=== PATIENT | female | born 1995 | race Caucasian/White ===

== ENCOUNTER 2016-08-13 00:05 | Emergency (ER) | payer SELFPAY ==
[~2016-08-13] VITALS: Ht 162.6 cm; Wt 66.0 kg
[~2016-08-13 00:05] MED LIST: FER325 PO; PREN1TAB62 PO
[2016-08-13 00:10] VITALS: Ht 162.6 cm; Wt 66.0 kg
[2016-08-13 00:52] LABS: ADD SCAN DIFF NO
[2016-08-13 01:00] LABS: BASOPHILS % 0.3 % (0.0-2.0); EOSINOPHILS # 0.2 10^3/ul (0.0-0.5); EOSINOPHILS % 1.4 % (0.0-7.0); HEMOGLOBIN 13.3 g/dl (12.0-16.0); LYMPHOCYTES # 2.7 10^3/ul (0.8-2.9); LYMPHOCYTES % 23.1 % (18.0-55.0); MEAN CORPUSCULAR HEMOGLOBIN 29.5 pg (29.0-33.0); MEAN CORPUSCULAR HGB CONC 34.1 g/dl (32.0-37.0); MEAN CORPUSCULAR VOLUME 86.5 fl (72.0-104.0); MEAN PLATELET VOLUME 9.9 fl (7.4-10.4); MONOCYTE # 0.8 10^3/ul (0.3-0.9); MONOCYTES % 6.7 % (0.0-13.0); NEUTROPHIL # 7.9 10^3/ul (1.6-7.5); NEUTROPHILS % 67.9 % (30.0-74.0); PLATELET COUNT 275 10^3/UL (140-415); RED BLOOD COUNT 4.51 10^6/ul (4.20-5.40); RED CELL DISTRIBUTION WIDTH 12.8 % (11.5-14.5); WHITE BLOOD COUNT 11.6 10^3/ul (4.8-10.8)
[2016-08-13 01:11] LABS: ADD UMIC YES; UR AMORPHOUS CRYSTAL MANY /HPF (NONE SEEN); UR ASCORBIC ACID NEGATIVE (NEGATIVE); UR BILIRUBIN (Dip) NEGATIVE (NEGATIVE); UR BLOOD (Dip) NEGATIVE (NEGATIVE); UR CLARITY CLOUDY (CLEAR); UR COLOR YELLOW (YELLOW); UR GLUCOSE (Dip) NEGATIVE (NEGATIVE); UR KETONES (Dip) NEGATIVE (NEGATIVE); UR LEUKOCYTE ESTERASE (Dip) NEGATIVE Leu/ul (NEGATIVE); UR NITRITE (Dip) NEGATIVE (NEGATIVE); UR RBC 0 /HPF (0-5); UR SPECIFIC GRAVITY (Dip) 1.013 (1.003-1.030); UR SQUAMOUS EPITHELIAL CELL FEW /HPF (FEW); UR TOTAL PROTEIN (Dip) NEGATIVE (NEGATIVE); UR UROBILINOGEN (Dip) NEGATIVE (NEGATIVE)
--- NOTE | 2016-08-13 02:01 | RADRPT ---
PROCEDURE: ULTRASOUND OBSTETRICAL CLINICAL INDICATION: 20-year-old female with pelvic pain/pressure. TECHNIQUE: Multiple sonographic images of the pelvis were obtained. The images were reviewed on a PACS workstation. COMPARISON: No prior studies are available for comparison. FINDINGS: The cervix is not well visualized. There is a single viable intrauterine gestation. Cardiac activit y is present with 144 beats per minute. There is a vertex presentation. Measurements were made in or valdemar to determine age. The results are as follows: BPD = 4.62 cm, HC = 17.08 cm, AC = 13.27 cm, FL = 3.15 cm. This yields and estimated gestational ag e of approximately 19 weeks 4 days. The estimated date of delivery is January 03, 2017. The EFW = 285 +/- 43 g. The GP is 47%. The placenta is posterior. There is no evidence for an abruption or placenta previa. There is an adequate amount of amniotic fluid with a maximal vertical pocket of 4.2 cm. IMPRESSION: Single viable intrauterine gestation of approximately 19 weeks 4 days. The estimated date of delive ry is January 03, 2017. .Rajesh Botello MD, Date Time Electronically viewed and signed by .Rajesh Botello MD, on 08/13/2016 02:01 .Janae/
--- NOTE | 2016-08-13 03:14 | ERD ---
ER Documentation Chief Complaint Date/Time DATE: 08/13/16 TIME: 03:12 Chief Complaint 19 weeks and 2 days , pelvic pain HPI This is a 20-year-old female presenting to the emergency department who is with last menstrual period being March 30 stating she is 19 weeks complaining of pelvic pain for the past 2 days. Patient states that the pain comes and goes and describes as crampy rating it moderate in severity. Patient denies any vaginal bleeding, fevers, dysuria. She denies any nausea, vomiting, diarrhea. Patient states that she has an OB at [facility] ROS All systems reviewed and are negative except as per history of present illness. Medications Home Meds Reported Medications Ferrous Sulfate* (Ferrous Sulfate*) 325 Mg Tabec, 325 MG PO DAILY, TAB 01/13/15 Vit-Iron Fumarate-FA ( Vitamin Tablet) 1 Each Tablet, 1 TAB PO DAILY, TAB 10/02/14 Allergies Allergies: Coded Allergies: No Known Drug Allergies (Verified Allergy, Unknown, 10/02/14) Uncoded Allergies: NKA (Allergy, 11/28/12) PMhx/Soc Medical and Surgical Hx: pt denies Medical Hx, pt denies Surgical Hx History of Surgery: No Anesthesia Reaction: No Hx Neurological Disorder: No Hx Respiratory Disorders: No Hx Cardiac Disorders: No Hx Psychiatric Problems: No Hx Miscellaneous Medical Probl: No Hx Alcohol Use: No Hx Substance Use: No Hx Tobacco Use: No Smoking Status: Never smoker Physical Exam Vitals Vital Signs Date Time Temp Pulse Resp B/P Pulse Ox O2 Delivery O2 Flow Rate FiO2 08/13/16 00:10 98.2 84 20 122/75 97 Physical Exam General: well-developed/well-nourished, in no apparent distress, non-toxic appearing HENT: NC/AT Eyes: Conjunctiva normal Neck: Supple Pulm: CTA bilaterally, normal breathing CV: Normal S1S2 GI: Soft, non-distended, normal bowel sounds, TTP on suprapubic region Back: No midline tenderness, no masses, No CVAT Ext: No clubbing, cyanosis, or edema Neuro: Alert and orientated Skin: intact, normal turgor Psych: Normal mood and mentation Result Diagram: 08/13/16 0035 Results 24 hrs Laboratory Tests Test 08/13/16 00:35 White Blood Count 11.610^3/ul Red Blood Count 4.5110^6/ul Hemoglobin 13.3g/dl Hematocrit 39.0% Mean Corpuscular Volume 86.5fl Mean Corpuscular Hemoglobin 29.5pg Mean Corpuscular Hemoglobin Concent 34.1g/dl Red Cell Distribution Width 12.8% Platelet Count 94956^3/UL Mean Platelet Volume 9.9fl Neutrophils % 67.9% Lymphocytes % 23.1% Monocytes % 6.7% Eosinophils % 1.4% Basophils % 0.3% Nucleated Red Blood Cells % 0.0/100WBC Neutrophils # 7.910^3/ul Lymphocytes # 2.710^3/ul Monocytes # 0.810^3/ul Eosinophils # 0.210^3/ul Basophils # 0.010^3/ul Nucleated Red Blood Cells # 0.010^3/ul Urine Color YELLOW Urine Clarity CLOUDY Urine pH 7.0 Urine Specific [place] 1.013 Urine Ketones NEGATIVEmg/dL Urine Nitrite NEGATIVEmg/dL Urine Bilirubin NEGATIVEmg/dL Urine Urobilinogen NEGATIVEmg/dL Urine Leukocyte Esterase NEGATIVELeu/ul Urine Microscopic RBC 0/HPF Urine Microscopic WBC 0/HPF Urine Squamous Epithelial Cells FEW/HPF Urine Amorphous Crystals MANY/HPF Urine Hemoglobin NEGATIVEmg/dL Urine Glucose NEGATIVEmg/dL Urine Total Protein NEGATIVEmg/dl Beta HCG, Quantitative 08378.0mIU/ml Procedures/MDM This is a 20-year-old female presenting to the emergency department who is with last menstrual period being March 30 stating she is 19 weeks complaining of pelvic pain for the past 2 days. Patient is well-appearing, she has stable vital signs. She did not seem to be in significant pain. Lab work was drawn. CBC did not show any evidence of leukocytosis or anemia. CMP did not show any evidence of renal, liver, or electrolyte abnormalities. Lipase was normal. UA did not show any evidence of hemoglobin or urinary tract infection. Ultrasound showed a single viable intrauterine gestation of 19 weeks. There was no evidence of urinary tract infection, , ovarian torsion or ruptured ovarian cyst. At this time patient appears well to be discharged home to follow-up with an [facility]. I discussed the patient to return to the ER for any worsening sinuses. She understands and agrees with this plan OB ultrasound: Single viable intrauterine gestation of approximately 19 weeks 4 days. The estimated date of delivery is January 03, 2017. Departure Diagnosis: Primary Impression: Pelvic pain during Condition: Stable Patient Instructions: Pelvic Pain In : Unclear (2-3 Trimester) Additional Instructions: FOLLOW UP WITH YOUR PRIMARY CARE PHYSICIAN TOMORROW.Return to this facility if you are not improving as expected. Return to this facility if you are not improving as expected. SUZAN RAMÍREZ PA-C Aug 13, 2016 03:14
== END 2016-08-13 02:30 | disposition home or self-care (01) ==
LOC: FTE 00:05
DX: O26.892 Other specified pregnancy related conditions, second trimester (principal); R10.2 Pelvic and perineal pain; Z3A.19 19 weeks gestation of pregnancy
CPT/HCPCS: 36415; 76805; 81001; 84702; 85025; 86900; 86901

== ENCOUNTER 2016-12-22 06:30 | Inpatient (IN) | payer OTHER ==
[~2016-12-22] VITALS: Ht 167.6 cm; Wt 76.5 kg
[2016-12-22 06:47] VITALS: Ht 167.6 cm; Wt 76.5 kg
[2016-12-22 06:48] VITALS: BP 138/83; PULSE 93; RESP 18
[2016-12-22] MEDS ORDERED: BEN25 PO (06:51)
--- NOTE | 2016-12-22 07:20 | TRIAGE ---
OB Triage Datetime Report Generated by CPN: 12/22/2016 07:19 Datetime: 12/22/2016 07:05 Stage of : OB Triage Labor Evaluation Frequency: 2-5 Monitor Mode: External Duration (sec)2399: 60-120 Quality: Moderate Pattern: Normal: <= 5 Contractions in 10 Minutes Resting Tone [place]: Relaxed Heart Rate FHR Baseline Rate: 130 Monitor Mode: External US Variability: Moderate 6-25 bpm Accelerations: 10X10 Decelerations: None Category: Category I Pain Assessment Pain Scale: 7 Pain Presence: Intermittent Pain Type: Cramping; Contraction Pain Location: Abdomen; Back Pain Goal: 3 Pain Relief Measures: Comfort Measures Datetime: 12/22/2016 07:00 Vaginal Exam Dilatation (cms): 5.0 Effacement (%): 90 Station: -1 Exam By: [place] Vaginal Bleeding: None Cervix, Consistency: Soft Cervix, Position: Midposition Datetime: 12/22/2016 06:53 Assessment Type: Triage Maternal Assessment Level of Consciousness: Fully Conscious DTR's/Clonus: DTRs 2+; No Clonus Headache: Denies Blurred Vision: No Respiratory Effort: Unlabored; Regular Rhythm; Equal Expansion Breath Sounds, Left: Clear and Equal Breath Sounds, Right: Clear and Equal Nausea/Vomiting: Denies RUQ Epigastric Pain: Denies Lower Extremities Edema: None Upper Extremities Edema: None Facial Edema: None Fall Risk Assessment History of Falling: (0) No Secondary Diagnosis: (0) No Ambulatory Aid: (0) Bedrest/Nurse Assist IV Therapy: (0) No Gait: (0) Normal/Bedrest/Immobile Mental Status: (0) Oriented to Own Ability Fall Score: 0 Fall Risk Score Definition: No Risk: No action required Datetime: 12/22/2016 06:52 Time of Arrival: 12/22/2016 06:23 EGA: 38.0 Arrived By: Wheelchair Arrived From: Home Chief Complaint: CONTRACTIONS SINCE 2099 Movement: Present Contractions: Regular Time Contractions Began: 12/21/2016 21:00 Contractions: Q 5 MIN Rupture of Membranes: Denies Vaginal Discharge: Denies Time Provider Notified: 12/22/2016 07:02 Provider Notified: ISABEL Initial Plan: EFM, ASSESSMENT, CALL MD FOR ORDERS
[2016-12-22] MEDS ORDERED: IBUPROFEN 600 MG TAB PO PRN (07:30)
[2016-12-22] MEDS ORDERED: OXYTOCIN 30 UNITS/LR 500 ML IV PRN (07:30)
[2016-12-22] MEDS ORDERED: BUTORPHANOL 2 MG INJ IV PRN (07:30)
[2016-12-22] MEDS ORDERED: OXYTOCIN 30 UNITS/LR 500 ML IV SCH ×2 (07:30)
[2016-12-22] MEDS ORDERED: METHYLERGONOVINE 0.2 MG INJ IM PRN (07:30)
[2016-12-22] MEDS ORDERED: CARBOPROST 250 MCG INJ IM PRN (07:30)
[2016-12-22] MEDS ORDERED: MISOPROSTOL 200 MCG TAB PR PRN (07:30)
[2016-12-22] MEDS ORDERED: LACTATED RINGER'S 1,000 ML IV PRN (07:30)
[2016-12-22] MEDS ORDERED: LIDOCAINE 1% (MPF) 30 ML INJ INJ PRN (07:30)
[2016-12-22] MEDS: LACTATED RINGER'S 1,000 ML IV SCH ×2 (08:06→08:26)
[2016-12-22] MEDS ORDERED: FENTAnyl 2MCG/ML-ROPIV 0.2% 100 ML ONE (08:32)
--- NOTE | 2016-12-22 09:28 | LDN ---
Date/Time of Note Date/Time of Note DATE: 12/22/16 TIME: 09:24 Delivery Summary Normal spontaneous vaginal delivery of a baby girl from OA position shoulders delivered without any difficulty rest of the baby's body followed cord clamped after stopped pulsation, placenta spontaneous expulsion inspected complete, patient sustained 2 very small para urethral laceration repaired with 4-0 chromic catgut ,estimated blood loss 200 cc Weeks of Gestation 38 week Placenta Delivered: Spontaneously Meconium: none Episiotomy: No Laceration repair: 2 1 cm paraurethral laceration repaired with 4-0 chromic catgut Anesthesia type: Epidural Estimated blood loss: 200 Sponge & Needle done & correct: Yes All needle counts correct: Yes Any foreign bodies felt in the: No Problems: Delivery Information Sex Sex: female Apgars 1 Minute: 9 5 Minute: 9 Suctioning Nose & mouth suctioned at nona: Yes Delee suction performed: No Umbilical Cord Umbilical cord with: 3 Vessels Cord presentations: no nuchal cord Cord Blood was obtained: Yes SHIRLEY HALL MD Dec 22, 2016 09:28
--- NOTE | 2016-12-22 09:33 | HP ---
Date/Time of Note Date/Time of Note DATE: 12/22/16 TIME: 09:28 OB - History Hx of Present Free Text/Dictation 21 years old female 3 para 2 EDC January 05, 2017 admitted to [facility] at 38 weeks gestation in active labor ,examination on admission cervix 5 cm dilated 90% effaced vertex at -1 station, patient transferred from the triage unit to L&D anticipating vaginal delivery Chief Complaint: Labor contraction Estimated Due Date: Jan 05, 2017 : 3 Para: 2 Care: Good Care Ultrasounds: Normal mid trimester US Obstetrical Complications: None Past Family/Social History * Past Medical, Surgical, Family and Obstetric Histories reviewed from chart. Rubella: immune RPR/VDRL: Negative GBS Status: Negative HBsAG: Negative OB Admission Exam Vital Signs Vital Signs Vital Signs Date Time Temp Pulse Resp B/P Pulse Ox O2 Delivery O2 Flow Rate FiO2 12/22/16 06:48 98.7 93 18 138/83 Room Air Physical Exam HEENT: WNL Heart: Rhythm Normal Lungs: Clear, Equal Abdomen: WNL Extremities: Normal Reflexes: Normal Cervical Dilatation: 5cm Effacement: Other (90%) Station: -1 Membranes: Intact Heart Rate: 130's Accelerations: Accelerations Present Decelerations: No Decelerations Varibility: Moderate Contractions on Admission: < 5 Minutes Apart Intensity: Firm Last 72 hours Lab Results CBC & BMP 12/22/16 07:44 OB Assessment/Plan Reason for admission: other (38 weeks admitted to the hospital in active labor) Other plan: 21 years old female , EDC January 05, 2017 admitted to the hospital in active labor ,pelvic examination on admission cervix 5 cm dilated 90% effaced vertex at -1 station category 1 heart tracing, contraction every 2-4 minutes patient transferred from triage to labor and delivery room anticipating vaginal delivery SHIRLEY HALL MD Dec 22, 2016 09:33
[2016-12-22] MEDS ORDERED: WITCH HAZEL/GLYCERIN PAD PR PRN (11:30)
[2016-12-22] MEDS ORDERED: BENZOCAINE 20% 56 ML SPRAY TOP PRN (11:30)
[2016-12-22] MEDS ORDERED: ONDANSETRON 4 MG INJ IV PRN ×2 (11:30→14:30)
[2016-12-22] MEDS ORDERED: OXYCODONE/ASPIRIN (4.88/325) TAB PO PRN ×2 (11:30)
[2016-12-22] MEDS ORDERED: HYDROCODONE/APAP (5/325) TAB PO PRN ×2 (11:30)
[2016-12-22] MEDS ORDERED: LANOLIN 7 GM TUBE TOP PRN (11:30)
[2016-12-22] MEDS ORDERED: ACETAMINOPHEN 325 MG TAB PO PRN (11:30)
[2016-12-22] MEDS ORDERED: DIBUCAINE 1% 30 GM OINT PR PRN (11:30)
[2016-12-22 11:39] VITALS: BP 128/82; PULSE 97; RESP 14
[2016-12-22 12:30] VITALS: BP 125/75; PULSE 77; RESP 14
[2016-12-22] MEDS: OXYTOCIN 30 UNITS/LR 500 ML IV SCH ×2 (13:34→17:22)
[2016-12-22] MEDS: IBUPROFEN 600 MG TAB PO SCH ×3 (13:35→23:52)
[2016-12-22] MEDS ORDERED: NALOXONE (0.4 MG/ML) INJ IV PRN (14:30)
[2016-12-22] MEDS ORDERED: FENTAnyl 2MCG/ML-ROPIV 0.2% 100 ML BAG EPI SCH (14:30)
[2016-12-22] MEDS ORDERED: DIPHENHYDRAMINE 50 MG INJ IV PRN (14:30)
[2016-12-22 16:34] VITALS: BP 120/70; PULSE 66; RESP 14
[2016-12-22 20:40] VITALS: BP 131/77; PULSE 92; RESP 18
[2016-12-22] MEDS: SENNA/DOCUSATE NA (8.6MG/50MG) TAB PO SCH (21:52)
[2016-12-23 04:00] VITALS: BP 119/72; PULSE 75; RESP 17
[2016-12-23] MEDS: IBUPROFEN 600 MG TAB PO SCH ×3 (05:55→17:30)
[2016-12-23 08:00] VITALS: BP 106/60; PULSE 72; RESP 18
[2016-12-23] MEDS: SENNA/DOCUSATE NA (8.6MG/50MG) TAB PO SCH ×2 (09:59→20:28)
[2016-12-23 16:00] VITALS: BP 108/67; PULSE 77; RESP 18
--- NOTE | 2016-12-23 16:13 | QN ---
Documentation Comment Post normal vaginal delivery day 1 Afebrile Vital signs are stable Abdomen soft, uterus firm, lochia normal, extremity normal Plan of a.m. discharge discussed SHIRLEY HALL MD Dec 23, 2016 16:13
[2016-12-23 19:54] VITALS: BP 116/76; PULSE 83; RESP 18
[2016-12-24 04:15] VITALS: BP 117/76; PULSE 83; RESP 18
[2016-12-24] MEDS: IBUPROFEN 600 MG TAB PO SCH ×4 (05:41→17:44)
[2016-12-24 07:20] VITALS: BP 128/78; PULSE 81; RESP 19
[2016-12-24] MEDS ORDERED: MEASLES,MUMPS,RUBELLA VACCINE INJ SC* ONE (09:00)
[2016-12-24] MEDS: SENNA/DOCUSATE NA (8.6MG/50MG) TAB PO SCH ×2 (10:43→20:47)
--- NOTE | 2016-12-24 11:26 | DS ---
Date/Time of Note Date/Time of Note DATE: 12/24/16 TIME: 11:22 Obstetrical Discharge Record Final Diagnosis Final Diagnosis: Term not delivered Vaginal Delivery Obstetrical Delivery: Spontaneous Complications Augmentation: Yes Rupture of Membranes: No Condition on Discharge Physical Assessment Voiding: Yes Bowel Movement: Yes Breast: Soft, non-tender Fundus: Firm Abdomen and Incision: Current Medications Medications (Trade) Dose Ordered Sig/Edilberto Route PRN Reason Start Time Stop Time Status Last Admin Dose Admin Lactated Ringer's (Lr) 1,000 ml @ 125 mls/hr Q8H IV 12/22/16 07:02 12/22/16 11:26 DC 12/22/16 08:26 Butorphanol Tartrate (Stadol) 2 mg Q2H PRN IV PAIN 12/22/16 07:30 12/22/16 11:26 DC Lidocaine 30 ml 30 ml ONCE PRN INJ EPISIOTOMY/TEARING 12/22/16 07:30 12/22/16 11:26 DC Oxytocin/Lactated Ringer's 500 ml @ 125 mls/hr ONCE -MAY REPEAT X1 IV 12/22/16 07:30 12/22/16 11:26 DC 12/22/16 08:57 Oxytocin/Lactated Ringer's 500 ml @ 125 mls/hr ONCE IV 12/22/16 07:30 12/22/16 11:26 DC 12/22/16 09:21 Ibuprofen 600 mg 600 mg ONCE PRN PO Mild Pain (Pain Score 1-3) 12/22/16 07:30 12/22/16 11:26 DC Lactated Ringer's 1,000 ml @ 2,000 mls/hr Q30M PRN IV PRE-EPIDURAL BOLUS 12/22/16 07:30 12/22/16 11:26 DC Oxytocin/Lactated Ringer's 500 ml @ 0 mls/hr ONCE PRN IV For Hemorrhage Management 12/22/16 07:30 12/22/16 11:26 DC Methylergonovine Maleate (Methergine) 0.2 mg ONCE PRN IM VAGINAL BLEEDING 12/22/16 07:30 12/22/16 11:26 DC Carboprost Tromethamine (Hemabate) 250 mcg ONCE PRN IM VAGINAL BLEEDING 12/22/16 07:30 12/22/16 11:26 DC Misoprostol 1000 mcg 1,000 mcg ONCE PRN DC VAGINAL BLEEDING 12/22/16 07:30 12/22/16 11:26 DC Fentanyl/ Ropivacaine 100 ml @ STK-MED ONCE .ROUTE 12/22/16 08:32 12/22/16 08:33 DC Oxytocin/Lactated Ringer's 500 ml @ 125 mls/hr Q4H IV 12/22/16 11:24 12/22/16 19:23 DC 12/22/16 17:22 Ibuprofen (Motrin) 600 mg Q6 PO 12/22/16 12:00 12/24/16 05:41 Acetaminophen (Tylenol Tab) 650 mg Q4H PRN PO PAIN LEVEL 1-5 12/22/16 11:30 Acetaminophen/ Hydrocodone Bitart ([place] (5/325)) 1 tab Q4H PRN PO PAIN LEVEL 1-5 12/22/16 11:30 Acetaminophen/ Hydrocodone Bitart ([place] (5/325)) 2 tab Q4H PRN PO PAIN LEVEL 6-10 12/22/16 11:30 Oxycodone/Aspirin (Percodan) 1 tab Q3H PRN PO PAIN LEVEL 1-5 12/22/16 11:30 Oxycodone/Aspirin (Percodan) 2 tab Q3H PRN PO PAIN LEVEL 6-10 12/22/16 11:30 Ondansetron HCl (Zofran Inj) 4 mg Q6H PRN IV NAUSEA AND/OR VOMITING 12/22/16 11:30 Senna/Docusate Sodium (Senokot-S) 1 tab BID PO 12/22/16 21:00 12/24/16 10:43 Witch Rosenda/ Glycerin (Tucks Pads) 1 pad BEDSIDE MEDICATION PRN DC HEMORRHOID/EPISIOTMY PAIN 12/22/16 11:30 12/22/16 13:34 Benzocaine (Dermoplast [place]) 1 spray BEDSIDE MEDICATION PRN TOP HEMORRHOID/EPISIOTMY PAIN 12/22/16 11:30 12/22/16 13:34 Dibucaine (Nupercainal) 1 applic BEDSIDE MEDICATION PRN DC HEMORRHOID/EPISIOTMY PAIN 12/22/16 11:30 12/22/16 13:35 Lanolin (Pus-U-Moxofe) 1 applic BEDSIDE MEDICATION PRN TOP BEDSIDE FOR QUINTIN TO NIPPLES 12/22/16 11:30 12/22/16 13:35 Measles/Mumps/ Rubella Vaccine Live (Mmr Ii Vaccine) 0.5 ml ONCE ONCE SC* 12/24/16 09:00 12/24/16 09:04 DC Naloxone HCl (Narcan) 0.1 mg Q2M PRN IV FOR RESP RATE 8 OR LESS 12/22/16 14:30 12/23/16 14:29 DC Diphenhydramine HCl (Benadryl) 25 mg Q6H PRN IV ITCHING 12/22/16 14:30 12/23/16 14:29 DC Ondansetron HCl (Zofran Inj) 4 mg Q6H PRN IV NAUSEA AND/OR VOMITING 12/22/16 14:30 12/23/16 14:29 DC Fentanyl/ Ropivacaine 100 ml EPIDURAL INFUSION EPI 12/22/16 14:30 Episiotomy: laceratin is healing well. Calf Tenderness: No Patient Condition: Good TAI GIBSON MD Dec 24, 2016 11:26
--- NOTE | 2016-12-24 11:26 | DS ---
Date/Time of Note Date/Time of Note DATE: 12/24/16 TIME: 11:22 Obstetrical Discharge Record Final Diagnosis Final Diagnosis: Term not delivered Vaginal Delivery Obstetrical Delivery: Spontaneous Complications Augmentation: Yes Rupture of Membranes: No Condition on Discharge Physical Assessment Voiding: Yes Bowel Movement: Yes Breast: Soft, non-tender Fundus: Firm Abdomen and Incision: Current Medications Medications (Trade) Dose Ordered Sig/Edilberto Route PRN Reason Start Time Stop Time Status Last Admin Dose Admin Lactated Ringer's (Lr) 1,000 ml @ 125 mls/hr Q8H IV 12/22/16 07:02 12/22/16 11:26 DC 12/22/16 08:26 Butorphanol Tartrate (Stadol) 2 mg Q2H PRN IV PAIN 12/22/16 07:30 12/22/16 11:26 DC Lidocaine 30 ml 30 ml ONCE PRN INJ EPISIOTOMY/TEARING 12/22/16 07:30 12/22/16 11:26 DC Oxytocin/Lactated Ringer's 500 ml @ 125 mls/hr ONCE -MAY REPEAT X1 IV 12/22/16 07:30 12/22/16 11:26 DC 12/22/16 08:57 Oxytocin/Lactated Ringer's 500 ml @ 125 mls/hr ONCE IV 12/22/16 07:30 12/22/16 11:26 DC 12/22/16 09:21 Ibuprofen 600 mg 600 mg ONCE PRN PO Mild Pain (Pain Score 1-3) 12/22/16 07:30 12/22/16 11:26 DC Lactated Ringer's 1,000 ml @ 2,000 mls/hr Q30M PRN IV PRE-EPIDURAL BOLUS 12/22/16 07:30 12/22/16 11:26 DC Oxytocin/Lactated Ringer's 500 ml @ 0 mls/hr ONCE PRN IV For Hemorrhage Management 12/22/16 07:30 12/22/16 11:26 DC Methylergonovine Maleate (Methergine) 0.2 mg ONCE PRN IM VAGINAL BLEEDING 12/22/16 07:30 12/22/16 11:26 DC Carboprost Tromethamine (Hemabate) 250 mcg ONCE PRN IM VAGINAL BLEEDING 12/22/16 07:30 12/22/16 11:26 DC Misoprostol 1000 mcg 1,000 mcg ONCE PRN IN VAGINAL BLEEDING 12/22/16 07:30 12/22/16 11:26 DC Fentanyl/ Ropivacaine 100 ml @ STK-MED ONCE .ROUTE 12/22/16 08:32 12/22/16 08:33 DC Oxytocin/Lactated Ringer's 500 ml @ 125 mls/hr Q4H IV 12/22/16 11:24 12/22/16 19:23 DC 12/22/16 17:22 Ibuprofen (Motrin) 600 mg Q6 PO 12/22/16 12:00 12/24/16 05:41 Acetaminophen (Tylenol Tab) 650 mg Q4H PRN PO PAIN LEVEL 1-5 12/22/16 11:30 Acetaminophen/ Hydrocodone Bitart ([place] (5/325)) 1 tab Q4H PRN PO PAIN LEVEL 1-5 12/22/16 11:30 Acetaminophen/ Hydrocodone Bitart ([place] (5/325)) 2 tab Q4H PRN PO PAIN LEVEL 6-10 12/22/16 11:30 Oxycodone/Aspirin (Percodan) 1 tab Q3H PRN PO PAIN LEVEL 1-5 12/22/16 11:30 Oxycodone/Aspirin (Percodan) 2 tab Q3H PRN PO PAIN LEVEL 6-10 12/22/16 11:30 Ondansetron HCl (Zofran Inj) 4 mg Q6H PRN IV NAUSEA AND/OR VOMITING 12/22/16 11:30 Senna/Docusate Sodium (Senokot-S) 1 tab BID PO 12/22/16 21:00 12/24/16 10:43 Witch Rosenda/ Glycerin (Tucks Pads) 1 pad BEDSIDE MEDICATION PRN IN HEMORRHOID/EPISIOTMY PAIN 12/22/16 11:30 12/22/16 13:34 Benzocaine (Dermoplast [place]) 1 spray BEDSIDE MEDICATION PRN TOP HEMORRHOID/EPISIOTMY PAIN 12/22/16 11:30 12/22/16 13:34 Dibucaine (Nupercainal) 1 applic BEDSIDE MEDICATION PRN IN HEMORRHOID/EPISIOTMY PAIN 12/22/16 11:30 12/22/16 13:35 Lanolin ([id number]-U-Qubktr) 1 applic BEDSIDE MEDICATION PRN TOP BEDSIDE FOR QUINITN TO NIPPLES 12/22/16 11:30 12/22/16 13:35 Measles/Mumps/ Rubella Vaccine Live (Mmr Ii Vaccine) 0.5 ml ONCE ONCE SC* 12/24/16 09:00 12/24/16 09:04 DC Naloxone HCl (Narcan) 0.1 mg Q2M PRN IV FOR RESP RATE 8 OR LESS 12/22/16 14:30 12/23/16 14:29 DC Diphenhydramine HCl (Benadryl) 25 mg Q6H PRN IV ITCHING 12/22/16 14:30 12/23/16 14:29 DC Ondansetron HCl (Zofran Inj) 4 mg Q6H PRN IV NAUSEA AND/OR VOMITING 12/22/16 14:30 12/23/16 14:29 DC Fentanyl/ Ropivacaine 100 ml EPIDURAL INFUSION EPI 12/22/16 14:30 Episiotomy: laceratin is healing well. Calf Tenderness: No Patient Condition: Good TAI GIBSON MD Dec 24, 2016 11:26
--- NOTE | 2016-12-24 11:26 | DS ---
Date/Time of Note Date/Time of Note DATE: 12/24/16 TIME: 11:22 Obstetrical Discharge Record Final Diagnosis Final Diagnosis: Term not delivered Vaginal Delivery Obstetrical Delivery: Spontaneous Complications Augmentation: Yes Rupture of Membranes: No Condition on Discharge Physical Assessment Voiding: Yes Bowel Movement: Yes Breast: Soft, non-tender Fundus: Firm Abdomen and Incision: Current Medications Medications (Trade) Dose Ordered Sig/Edilberto Route PRN Reason Start Time Stop Time Status Last Admin Dose Admin Lactated Ringer's (Lr) 1,000 ml @ 125 mls/hr Q8H IV 12/22/16 07:02 12/22/16 11:26 DC 12/22/16 08:26 Butorphanol Tartrate (Stadol) 2 mg Q2H PRN IV PAIN 12/22/16 07:30 12/22/16 11:26 DC Lidocaine 30 ml 30 ml ONCE PRN INJ EPISIOTOMY/TEARING 12/22/16 07:30 12/22/16 11:26 DC Oxytocin/Lactated Ringer's 500 ml @ 125 mls/hr ONCE -MAY REPEAT X1 IV 12/22/16 07:30 12/22/16 11:26 DC 12/22/16 08:57 Oxytocin/Lactated Ringer's 500 ml @ 125 mls/hr ONCE IV 12/22/16 07:30 12/22/16 11:26 DC 12/22/16 09:21 Ibuprofen 600 mg 600 mg ONCE PRN PO Mild Pain (Pain Score 1-3) 12/22/16 07:30 12/22/16 11:26 DC Lactated Ringer's 1,000 ml @ 2,000 mls/hr Q30M PRN IV PRE-EPIDURAL BOLUS 12/22/16 07:30 12/22/16 11:26 DC Oxytocin/Lactated Ringer's 500 ml @ 0 mls/hr ONCE PRN IV For Hemorrhage Management 12/22/16 07:30 12/22/16 11:26 DC Methylergonovine Maleate (Methergine) 0.2 mg ONCE PRN IM VAGINAL BLEEDING 12/22/16 07:30 12/22/16 11:26 DC Carboprost Tromethamine (Hemabate) 250 mcg ONCE PRN IM VAGINAL BLEEDING 12/22/16 07:30 12/22/16 11:26 DC Misoprostol 1000 mcg 1,000 mcg ONCE PRN HI VAGINAL BLEEDING 12/22/16 07:30 12/22/16 11:26 DC Fentanyl/ Ropivacaine 100 ml @ STK-MED ONCE .ROUTE 12/22/16 08:32 12/22/16 08:33 DC Oxytocin/Lactated Ringer's 500 ml @ 125 mls/hr Q4H IV 12/22/16 11:24 12/22/16 19:23 DC 12/22/16 17:22 Ibuprofen (Motrin) 600 mg Q6 PO 12/22/16 12:00 12/24/16 05:41 Acetaminophen (Tylenol Tab) 650 mg Q4H PRN PO PAIN LEVEL 1-5 12/22/16 11:30 Acetaminophen/ Hydrocodone Bitart ([place] (5/325)) 1 tab Q4H PRN PO PAIN LEVEL 1-5 12/22/16 11:30 Acetaminophen/ Hydrocodone Bitart ([place] (5/325)) 2 tab Q4H PRN PO PAIN LEVEL 6-10 12/22/16 11:30 Oxycodone/Aspirin (Percodan) 1 tab Q3H PRN PO PAIN LEVEL 1-5 12/22/16 11:30 Oxycodone/Aspirin (Percodan) 2 tab Q3H PRN PO PAIN LEVEL 6-10 12/22/16 11:30 Ondansetron HCl (Zofran Inj) 4 mg Q6H PRN IV NAUSEA AND/OR VOMITING 12/22/16 11:30 Senna/Docusate Sodium (Senokot-S) 1 tab BID PO 12/22/16 21:00 12/24/16 10:43 Witch Rosenda/ Glycerin (Tucks Pads) 1 pad BEDSIDE MEDICATION PRN HI HEMORRHOID/EPISIOTMY PAIN 12/22/16 11:30 12/22/16 13:34 Benzocaine (Dermoplast [place]) 1 spray BEDSIDE MEDICATION PRN TOP HEMORRHOID/EPISIOTMY PAIN 12/22/16 11:30 12/22/16 13:34 Dibucaine (Nupercainal) 1 applic BEDSIDE MEDICATION PRN HI HEMORRHOID/EPISIOTMY PAIN 12/22/16 11:30 12/22/16 13:35 Lanolin ([id number]-Jmkhnz) 1 applic BEDSIDE MEDICATION PRN TOP BEDSIDE FOR QUINTIN TO NIPPLES 12/22/16 11:30 12/22/16 13:35 Measles/Mumps/ Rubella Vaccine Live (Mmr Ii Vaccine) 0.5 ml ONCE ONCE SC* 12/24/16 09:00 12/24/16 09:04 DC Naloxone HCl (Narcan) 0.1 mg Q2M PRN IV FOR RESP RATE 8 OR LESS 12/22/16 14:30 12/23/16 14:29 DC Diphenhydramine HCl (Benadryl) 25 mg Q6H PRN IV ITCHING 12/22/16 14:30 12/23/16 14:29 DC Ondansetron HCl (Zofran Inj) 4 mg Q6H PRN IV NAUSEA AND/OR VOMITING 12/22/16 14:30 12/23/16 14:29 DC Fentanyl/ Ropivacaine 100 ml EPIDURAL INFUSION EPI 12/22/16 14:30 Episiotomy: laceratin is healing well. Calf Tenderness: No Patient Condition: Good TAI GIBSON MD Dec 24, 2016 11:26
[2016-12-24 16:00] VITALS: BP 113/60; PULSE 72; RESP 19
[2016-12-24 20:40] VITALS: BP 124/75; PULSE 60; RESP 18
== END 2016-12-24 23:10 | disposition home or self-care (01) | DRG 775 ==
LOC: OBT 06:30 → L-D 06:30 → OBT 07:12 → PP1 11:12
PROVIDERS: ADMIT Obstetrics & Gynecology; ATTEND Obstetrics & Gynecology
PROC: 10E0XZZ Delivery of Products of Conception, External Approach (ICD-10-PCS; principal; 2016-12-22)
PROC: 3E0P3VZ Introduction of Hormone into Female Reproductive, Percutaneous Approach (ICD-10-PCS; 2016-12-22)
PROC: 0UQMXZZ Repair Vulva, External Approach (ICD-10-PCS; 2016-12-22)
DX: O71.82 Other specified trauma to perineum and vulva (principal); Z37.0 Single live birth; Z3A.38 38 weeks gestation of pregnancy
CPT/HCPCS: 62319; 80307; 85025; 85610; 85730; 86592; 86900; 86901; 87340; G0463; J2590; J3010; J7120

== ENCOUNTER 2017-09-17 05:39 | Emergency (ER) | END 2017-09-17 07:16 | disposition home or self-care (01) ==

== ENCOUNTER 2017-09-19 04:39 | Emergency (ER) | END 2017-09-19 05:30 | disposition home or self-care (01) ==

== ENCOUNTER 2017-12-07 05:15 | Emergency (ER) | END 2017-12-07 07:54 | disposition home or self-care (01) ==